=== PATIENT | male | born 1960 | race Caucasian/White ===

== ENCOUNTER → 2017-04-20 | Outpatient (CLI) | payer OTHER ==
[~2017-04-20] MED LIST: ALLERGY RELIEF25 M1 PO; ATORVASTATIN CA10 MG PO; BACLOFEN10 MG PO; BLOOD PRESSURE MED; DICLOFENAC PO; EPINEPHRIN0.3 MG/0.2 IM; HCTZ PO; HYDROCODONE-APA1 T33 PO; HYDROCODONE/APA1 T16 PO; LORCET PLUS 7.1 EACH PO; LOSARTAN POTAS100 MG PO; OMEPRAZOLE40 M1 PO; PERCOCET 10/31 UDTA1 PO; PERCOCET 7.5-31 EACH PO; PSEUDOEPHEDRINE60 MG PO; TOPIRAMATE50 MG PO; TRAZODONE HCL100 MG PO; TRAZODONE PO; VIAGRA PO; XARELTO10 MG PO; ZOLOFT PO
--- NOTE | ~2017-04-20 | CT92 ---
[facility] A Service of [facility] / [facility] RADIOLOGY TEXT RESULTS PATIENT: YO REECE LOCATION: [facility] : 58 UNIT #: [id number] AGE: [address]: Ena Lucio MD SEX: M ORDER DR: [id number] [place] [id number] MR#: [id number] Acc #: [id number] NAME: YO REECE : 1960 SEX: M STUDY DATE/TIME: 04/20/2017 13:09 UNIT: [facility] ROOM: STUDY DESCRIPTION: CT Lower Ext Lt Wo Cont Attending Physician: Patricia Lucio M.D. Referring Physician: Patricia Lucio M.D. Ordering Physician: Patricia Lucio M.D. Primary Care Physician: Kenny Tapia M.D. MEDICAL IMAGING REPORT This report is preliminary unless electronic signature is present. EXAM CT left ankle/hindfoot without contrast-with metal reduction technique and coronal and sagittal reconstructions, 04/20/2017. TECHNIQUE This CT exam was performed with one or more of the following radiation dose reduction techniques: automatic exposure control, adjustment of mA and/or kV according to patient size, and iterative reconstruction. COMPARISON Left ankle radiographs 04/09/2017, 01/08/2017, 10/19/2016. TECHNIQUE CT left ankle, 07/28/2016. HISTORY Order states left ankle replacement. Loose tibial component. History sheet states ankle replacement in September. Metal shifted in ankle 2 weeks ago. Swelling. Surgery 09/18/2017. Retired paratrooper. FINDINGS The patient is status post total ankle arthroplasty favored to be the Prophecy/Infinity type. There is periprosthetic lucency of the tibial component fairly diffusely with extensive lytic change about the 3 fixation pegs. There is no visible tibial periprosthetic fracture. Periosteal reaction is nonspecific. There is no gross displacement of the tibial component. The talar component of the arthroplasty demonstrates no evidence of periprosthetic fracture or loosening. There is a single screw in the fibula. [facility]. [facility] A Service of [facility] & [facility] RADIOLOGY TEXT RESULTS PATIENT: YO REECE LOCATION: [facility] : 58 UNIT #: [id number] AGE: [address]: nEa Lucio MD SEX: M ORDER DR: Chronic ossifications in the medial tibiotalar gutter region were present on the preoperative scan. The remainder of the bony hindfoot is normal. Soft tissue windows demonstrate prominent soft tissue edema or potentially fluid anterior to the distal tibia deep to the extensor tendons. There is peroneal tenosynovitis with possible retromalleolar high-grade tendinosis or interstitial tear of both the brevis longus tendons. IMPRESSION 1. Prophecy/Infinity a total ankle arthroplasty with extensive tibial periprosthetic lucency, especially about the 3 pegs compatible with tibial component loosening. There is no periprosthetic fracture. 2. The talar component is unremarkable. 3. Prominent anterior ankle soft tissue edema and/or fluid cannot be distinguished on noncontrast CT with certainty. 4. Peroneal tenosynovitis and possible tendon pathology detailed above. Dictated by... Ann Fuentes M.D. THIS IS AN ELECTRONICALLY VERIFIED REPORT Ann Fuentes M.D. at 04/24/2017 8:19 AM ARIANNA/sydnie TD: 04/23/2017 16:17 JOB #: [id number] MEDICAL IMAGING REPORT Page 1 of 1
== END | disposition home or self-care (01) ==
LOC: SCT 12:44
DX: T84.038A Mechanical loosening of other internal prosthetic joint, initial encounter (principal)
CPT/HCPCS: 73700

== ENCOUNTER → 2017-06-12 | Outpatient (CLI) | payer OTHER ==
[2017-06-12 11:26] LABS: HEMATOCRIT 36.3 % (38.0-50.0); HEMOGLOBIN 12.3 gm/dL (13.0-16.0); MEAN CELL VOLUME 92.9 FL (83-96); MEAN CORPUSCULAR HEMOGLOBIN 31.4 PG (28-34); MEAN CORPUSCULAR HGB CONC 33.8 g/dL (30-36); RED BLOOD COUNT 3.91 X10e (3.90-5.60); RED CELL DISTRIBUTION WIDTH 13.7 % (11.0-15.5); WHITE BLOOD COUNT 5.6 X10e3 (4.0-10.5)
[2017-06-12 11:28] LABS: URINE APPEARANCE CLEAR; URINE BILIRUBIN NEG (NEG); URINE BLOOD NEG (NEG); URINE COLOR YELLOW; URINE GLUCOSE NEG (NEG); URINE KETONE NEG (NEG); URINE LEUKOCYTE ESTERASE NEG (NEG); URINE NITRATE NEG (NEG); URINE PROTEIN NEG (NEG); URINE UROBILINOGEN 0.2 MG/DL (NEG)
[2017-06-12 11:30] LABS: URINE SOURCE CLEAN CATCH
[2017-06-12 11:31] LABS: CULTURE INDICATED? NO
[2017-06-12 12:04] LABS: BUN/CREATININE RATIO 14.16; CALCIUM SERUM 9.1 mg/dL (8.4-10.2); CREATININE SERUM 1.2 mg/dL (0.6-1.4); GLOM FILT RATE Estimated 66.7 mL/min (>60); POTASSIUM 3.8 mmol/L (3.5-5.1)
== END | disposition home or self-care (01) ==
LOC: CAMB 10:39
PROVIDERS: Orthopaedic Surgery
DX: Z01.812 Encounter for preprocedural laboratory examination (principal); T84.038A Mechanical loosening of other internal prosthetic joint, initial encounter
CPT/HCPCS: 36415; 80048; 81003; 85027; 87070

== ENCOUNTER 2017-06-26 10:25 | Inpatient (IN) | payer OTHER ==
--- NOTE | ~2017-06-26 | HP ---
Unit #: [id number] #: [id number] Patient: YO REECE [id number] [address] [place], [place] [address] [id number] O MR#: [id number] NAME: YO REECE ROOM: Age: 56 Sex: M Admission Date: 06/26/2017 : 1960 Attending Physician: Patricia Lucio M.D. Primary Care Physician: Kenny Tapia M.D. HISTORY AND PHYSICAL CHIEF COMPLAINT Left ankle pain. HISTORY OF PRESENT ILLNESS This 56-year-old male sustained a left ankle fracture dislocation, which was treated conservatively 7 years ago. He was admitted for left total ankle arthroplasty and Brostrom lateral ankle ligamentous reconstruction on September 18, 2016. The patient is now 9 months postoperative. The patient has now developed increasing left ankle pain with anterior subsidence of his tibial component. CT scan shows cystic changes and osteolysis of the distal tibia surrounding the component pegs with some anterior dorsal migration of the tibial component. The talar component appears well fixed. The patient is, therefore, to undergo revision of his left total ankle arthroplasty. Our plan is to fill his anterior defect with bone cement and leave his talar component intact if it is stable. PAST MEDICAL HISTORY His past medical history is remarkable for COPD, depression, gastroesophageal reflux disease, hypercholesterolemia, hypertension, migraine, sleep apnea, allergic rhinitis. HOME MEDICATIONS Atorvastatin, baclofen, Voltaren, diphenhydramine, Hydrochlorothiazide, hydrocodone, omeprazole, sertraline, topiramate, trazodone and cilias. ALLERGIES Lisinopril and sulfa. PAST SURGICAL HISTORY Appendectomy, knee surgery, lower back surgery, shoulder surgery, vasectomy, total ankle replacement. SOCIAL HISTORY The patient is a 40 pack-year smoker. He is a social drinker. FAMILY HISTORY Arthritis, stroke, COPD, hypertension, breast cancer. REVIEW OF SYSTEMS Unremarkable. PHYSICAL EXAM GENERAL: In general this is a well-developed, well-nourished male in no acute distress. Unit #: [id number] #: [id number] Patient: YO REECE HEENT: Pharynx is clear. NECK: The neck is supple without masses. HEART: Heart exam reveals a regular sinus rhythm without murmurs or gallops. LUNGS: The lungs are clear. ABDOMEN: The abdomen is soft and nontender without masses or organomegaly. EXTREMITIES: Evaluation of the left ankle demonstrates a well-healed anterior longitudinal incision and anterolateral distal fibular incision. Ankle dorsiflexion 10 degrees. Plantarflexion 30 degrees. Subtalar motion is normal. Sensation is intact. The patient has tenderness to palpation over the anterior distal tibia. There is no instability on varus or valgus stress. Pulses are normal. Sensation is normal. Motor exam is normal. DIAGNOSTIC STUDIES IMAGING: Standing x-rays of the left ankle show the Infinity prosthesis to be in good position in the talar component, although the tibial component shows anterior subsidence measuring an excess of 10 degrees. ADMITTING DIAGNOSIS Loose left total ankle arthroplasty. PLAN The patient will undergo revision of the left total ankle arthroplasty tibial component with plans to either revise the component completely or to place bone cement under the tibial component. This procedure was described, along with the risks of bleeding, infection, nerve damage, need for further surgery in the future, prolonged recovery time, deep venous thrombosis, pulmonary embolism, anesthetic complications. He understands the above risks and agrees to proceed with the treatment plan. Dictated by Micheal Freitas/xiomara TD: 06/26/2017 10:25 JOB #: [id number] HISTORY AND PHYSICAL Page 1 of 1 X Ena Lucio MD HISTORY AND PHYSICAL
--- NOTE | ~2017-06-26 | OR ---
Unit #: [id number] #: [id number] Patient: YO REECE [id number] [address] [place], [place] [address] [id number] MR#: [id number] NAME: YO REECE ROOM: 479 Date of Procedure: 06/26/2017 Admission Date: 06/26/2017 Surgeon: Patricia Lucio M.D. : 1960 Attending Physician: Patricia Lucio M.D. Primary Care Physician: Kenny Tapia M.D. OPERATIVE REPORT PREOPERATIVE DIAGNOSIS Loose left total ankle arthroplasty. POSTOPERATIVE DIAGNOSIS Loose left total ankle arthroplasty. PROCEDURE PERFORMED Left total ankle arthroplasty revision ([id number]). ASSISTANTS JAYDEN Hayes ANESTHESIA General and popliteal saphenous block. 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 The patient did well initially, but then developed progressive pain and now has subsidence of the tibial component. CT scan shows subchondral cyst formation and loosening of the tibial component with anterior subsidence. The patient is therefore to undergo revision with hopeful retention of the tibial component with placement of cement underneath this component to achieve fixation and restored joint line. His talar component appears to be well fixated on CT scan. If we were unable to do this, then he may require revision with complete replacement of both components and a thicker poly. DESCRIPTION OF PROCEDURE The patient was taken to the operating room following left popliteal saphenous block. He was placed in supine position. General anesthetic was induced. The left lower extremity was prepped and draped in the usual sterile fashion following the time-out procedure. The IV antibiotic protocol was followed. The left leg was then exsanguinated with an Esmarch bandage and the thigh tourniquet inflated to 250 mmHg. The previous anterior longitudinal scar incision was used for the 12 cm anterior incision. The subcutaneous tissue was carefully divided. The superficial peroneal nerve was identified and preserved. The extensor retinaculum was opened. The interval between the anterior tibial and extensor hallucis longus tendons was developed. Dissection proceeded deep Unit #: [id number] #: [id number] Patient: YO REECE to the anterior tibial tendon to protect the neurovascular bundle. The joint was then exposed subperiosteally. There was a clear brownish fluid,which was in the ankle joint. This did not appear to be infected. Aerobic and anaerobic cultures were taken. The joint was exposed subperiosteally. A portion of the scar tissue was excised and sent for pathologic examination. The talar component was well fixated. The tibial component was loose. The tibial component was easily displaced from the underlying distal tibial subchondral bone and was able to be pushed down for about approximately 5 mm. Intraoperative C-arm fluoroscopy showed that the talar component had subsided anteriorly approximately 5 mm. Therefore, this area was irrigated and then dried. Polymethylmethacrylate cement was then injected into the interface between the tibial component and the distal tibial bone while a downward pressure was being held to the anterior aspect of the tibial component. This position was held until the cement dried. AP and lateral C-arm fluoroscopic views showed excellent synagogue of the anterior joint line and excellent fixation of the component. There was no evidence of loosening. The wound was then copiously irrigated. Tourniquet was released with a total tourniquet time of 55 minutes. The joint capsule was closed with 2-0 Vicryl [id number] sutures. The extensor retinaculum was closed with 2-0 Vicryl [id number] sutures. Subcutaneous tissue was closed with 3-0 Vicryl and skin was closed with 3-0 nylon horizontal mattress sutures. Xeroform gauze, dressing, sponges, Webril, and a posterior fiberglass splint were applied. The patient was then transported to the recovery room in stable condition. ESTIMATED BLOOD LOSS Minimal. COMPLICATIONS None. SPECIMENS Cultures of the left ankle joint. TOURNIQUET TIME 55 minutes. Dictated byMicheal Corea/elizabeth TD: 06/26/2017 18:43 JOB #: [id number] OPERATIVE REPORT Page 1 of 1 X Ena Lucio MD PROCEDURE OPERATIVE NOTE
[~2017-06-26 10:25] MED LIST changes: -PERCOCET 7.5-31 EACH PO
[2017-06-27 02:00] LABS: HEMATOCRIT 36.7 % (38.0-50.0); HEMOGLOBIN 12.6 gm/dL (13.0-16.0)
[2017-06-27] MEDS ORDERED: XARELTO10 MG PO (11:05)
[2017-06-27] MEDS ORDERED: PERCOCET 7.5-31 EACH PO (11:05)
== END 2017-06-27 12:21 | disposition home or self-care (01) | DRG 517 ==
LOC: CSUR 10:25 → CPACUOF 12:44 → CSUR 13:00 → CPACUOF 15:30 → C4C 16:55
PROVIDERS: Orthopaedic Surgery
PROC: 0SWG0JZ Revision of Synthetic Substitute in Left Ankle Joint, Open Approach (ICD-10-PCS; principal; 2017-06-26 13:00)
DX: T84.038A Mechanical loosening of other internal prosthetic joint, initial encounter (principal); I10 Essential (primary) hypertension; F32.9 Major depressive disorder, single episode, unspecified; J44.9 Chronic obstructive pulmonary disease, unspecified; Y79.1 Therapeutic (nonsurgical) and rehabilitative orthopedic devices associated with adverse incidents; G47.30 Sleep apnea, unspecified; F17.200 Nicotine dependence, unspecified, uncomplicated; K21.9 Gastro-esophageal reflux disease without esophagitis; Z88.2 Allergy status to sulfonamides; Z82.49 Family history of ischemic heart disease and other diseases of the circulatory system; Z82.3 Family history of stroke; Z80.3 Family history of malignant neoplasm of breast; Z96.662 Presence of left artificial ankle joint
CPT/HCPCS: 82947; 85014; 85018; 87070; 87075; 87205; 94010; 94760; 97116; 97161; G8978-GP; G8979-GP; G8980-GP; J0330; J0690; J2250; J2270; J2405; J2710; J2795; J3010